=== PATIENT | male | born 1925 | race Caucasian/White ===

== ENCOUNTER 2016-05-29 17:35 | Inpatient (IN) | payer MEDICARE, OTHER ==
[~2016-05-29] VITALS: Ht 180.3 cm; Wt 95.7 kg
[2016-05-29 17:35] VITALS: BP 99/75; PULSE 91; RESP 21; TEMP 96.8; O2SAT 92
--- NOTE | 2016-05-29 17:35 | NUR ---
BROUGHT IN BY [facility]ILL 65 AND MARISEL MCCOY, PLACED IN BED #1 AND TRIAGED. REPORT GIVEN TO LEIGH ANN
--- NOTE | 2016-05-29 17:38 | NUR ---
Patient brought in by ambulance on breathing treatment-02 sat 95%, alert and oriented x4. Per EMT, patient was brought in from [facility] due to complaints of being short of breath. Patient states feels short of breath at this time. Breathing appears labored. RT at bedside-placed on 02 2L by RT and saturating at 98%, MD at bedside and aware. No other complaints/injuries per patient, emt or noted.
--- NOTE | 2016-05-29 17:45 | NUR ---
Rash noted to abdomen and arms with small openings, no drainage. Bilateral lower legs are wrapped with kerlix. Redness, rash with small openings and small amount of yellow/brown thin drainage noted to bilateral lower extremites. Patient states has itching problem and scratches area alot. States gets wound care MWF. Last wound care done this AM
[2016-05-29 18:04] LABS: BASOPHILS # (AUTO) 0.1 K/uL (0.0-0.2); EOSINOPHILS # (AUTO) 0.2 K/uL (0.0-0.4); EOSINOPHILS % (AUTO) 3.1 % (0.0-4.0); HEMOGLOBIN 11.1 g/dL (14.0-18.0); LYMPHOCYTES # (AUTO) 0.8 K/uL (1.0-5.5); LYMPHOCYTES % (AUTO) 14.7 % (20.5-51.5); MEAN CORPUSCULAR HEMOGLOBIN 26 pg (27-31); MEAN CORPUSCULAR HGB CONC 32 % (32-36); MEAN CORPUSCULAR VOLUME 83 fL (79.0-98.0); MONOCYTES # (AUTO) 0.8 K/uL (0.0-1.0); MONOCYTES % (AUTO) 13.7 % (1.7-9.3); NEUTROPHILS # (AUTO) 3.8 K/uL (1.8-7.7); NEUTROPHILS % (AUTO) 67.5 % (40.0-70.0); PLATELET COUNT (AUTO) 196 K/uL (130-430); RED BLOOD CELL COUNT(AUTO) 4.21 MIL/uL (4.2-6.2); RED CELL DISTRIBUTION WIDTH 23.5 % (9.0-15.0); WHITE BLOOD COUNT (AUTO) 5.7 K/uL (4.8-10.8)
--- NOTE | 2016-05-29 18:04 | NUR ---
Dr. Barrios increased 02 to 4L, saturation at 91%
[2016-05-29 18:15] LABS: CALCIUM 9.1 mg/dL (8.4-11.0); CHLORIDE 106 mmol/L (98-107); CREATININE 1.53 mg/dL (0.55-1.30); GLUCOSE 152 mg/dL (70-99); SODIUM SERUM 139 mmol/L (136-145); UREA NITROGEN, BLOOD 24 mg/dL (8-21)
[2016-05-29 18:20] LABS: ALANINE AMINOTRANSFERASE 18 U/L (12-78); ALBUMIN 3.3 g/dL (3.4-4.8); ASPARTATE AMINOTRANSFERASE 21 U/L (10-37); TOTAL BILIRUBIN 0.6 mg/dL (0.0-1.0); TOTAL PROTEIN, SERUM 6.7 g/dL (6.4-8.3)
[2016-05-29 18:26] LABS: ANION GAP < 3 (5-15)
[2016-05-29] MEDS ORDERED: AZITHROMYCIN 500 MG in NS 250 ML IV ONE (18:30)
[2016-05-29] MEDS ORDERED: cefTRIAXone 1 GM IVPB PREMIX 50 ML IV ONE (18:30)
--- NOTE | 2016-05-29 18:30 | NUR ---
Patient in stable condition, no distress noted. Grand-daughter at bedside.
[2016-05-29 18:32] LABS: INR 3.2 (0.80-1.20)
[2016-05-29] MEDS ORDERED: DILT120C89 PO (18:57)
[2016-05-29] MEDS ORDERED: SPIR50TA26 PO (18:57)
[2016-05-29] MEDS ORDERED: ASCO500T20 PO (18:57)
[2016-05-29] MEDS ORDERED: VIS25 PO (18:57)
[2016-05-29] MEDS ORDERED: FURO-149 PO (18:57)
[2016-05-29] MEDS ORDERED: WARF1TAB2 PO (18:57)
[2016-05-29] MEDS ORDERED: ACET-73 PO (18:57)
[2016-05-29] MEDS ORDERED: FERR-57 PO (18:57)
[2016-05-29] MEDS ORDERED: MULT-1117 PO (18:57)
[2016-05-29] MEDS ORDERED: HYDR-1189 PO (18:57)
[2016-05-29] MEDS ORDERED: DOCU-144 PO (18:57)
[2016-05-29] MEDS ORDERED: ATEN-41 PO (18:57)
[2016-05-29] MEDS ORDERED: HYDROcodone/ACETAMIN 5-325 MG TAB (NORCO/ VICODIN) PO PRN (19:45)
--- NOTE | 2016-05-29 19:45 | NUR ---
Patient will be admitted to [facility]. Admitted to tele unit. Will go to room 121-a. Belongings list completed. Summary report printed. Report given to BERHANE GAN.
[2016-05-29 19:54] VITALS: BP 110/68; PULSE 79; RESP 21; TEMP 96.9; O2SAT 92
--- NOTE | 2016-05-29 20:00 | NUR ---
ADMISSION NOTE Received patient from ER via gurney. Patient admitted with diagnosis of PNA. Patient is awake, alert, oriented X 4. Patient oriented to hospital room, call light, toileting, pain management and safety-teach back done. Patient informed that will be nurse and that their room number is 121A . Personal belongings checked and Belongings List documented. Call light within reach.
--- NOTE | 2016-05-29 20:19 | NUR ---
Initial Note Patient in bed at this time resting. Patient has multiple scabs throughout the skin. Bilateral leg redness. Iv site on both AC and both flushing well. Patient is alert and oriented x3. Patient is on oxygen with saturations in the 90s. No acute distress noted at this time. Vital signs stable. Oriented patient to room and call light, patient oriented to TV. Bed alarm on. Fall and safety precautions in place. Will continue to monitor.
[2016-05-29] MEDS: SPIRONOLACTONE 50 MG TABLET (ALDACTONE) PO SCH (20:43)
[2016-05-29 21:31] LABS: BILIRUBIN,URINE NEGATIVE (NEGATIVE); BLOOD, URINE 3+ (NEGATIVE); CLARITY/URINE SL CLOUDY (CLEAR); COLOR,URINE YELLOW (YELLOW); GLUCOSE,URINE NEGATIVE (NEGATIVE); KETONES,URINE TRACE (NEGATIVE); LEUKOCYTE ESTERASE ,URINE 2+ (NEGATIVE); NITRITE, URINE NEGATIVE (NEGATIVE); PROTEIN URINE 2+ (NEGATIVE); UROBILINOGEN,URINE 0.2 (0.2-1.0)
[2016-05-29 21:59] LABS: BACTERIA,URINE MANY /HPF (None Seen); MUCUS,URINE None Seen /LPF (None Seen); RBC,URINE 20-50 /HPF (0-3); WBC,URINE >100 /HPF (0-3)
--- NOTE | 2016-05-29 22:25 | NUR ---
RN ROUNDS Patient in bed at this time resting with eyes closed. respirations even and unlabored. No acute distress noted at this time. Patient in no apparent pain or discomfort at this time. Patient has a dry cough at this time. Call light in hand. Fall and safety precautions in place. Will continue to monitor.
[2016-05-29] MEDS ORDERED: ZOLPIDEM TARTRATE 5 MG TABLET PO PRN (23:15)
[2016-05-29] MEDS ORDERED: IPRATROPIUM/ALBUTEROL SULFATE 3 ML AMPUL.NEB INH PRN (23:15)
[2016-05-29] MEDS ORDERED: IPRATROPIUM/ALBUTEROL SULFATE 3 ML AMPUL.NEB INH ONE (23:45)
[2016-05-30] VITALS (9 sets, daily range): BP systolic 104–120; BP diastolic 52–74; PULSE 77–98; RESP 16–19; TEMP 97.5–98.7; O2SAT 90–94
--- NOTE | 2016-05-30 00:48 | NUR ---
RN ROUNDS Patient in bed at this time resting, respirations even and unlabored. Patient in no apparent pain or discomfort at this time, no facial grimacing noted. Call light in hand. Fall and safety precautions in place. Will continue to monitor.
[2016-05-30] MEDS: IPRATROPIUM/ALBUTEROL SULFATE 3 ML AMPUL.NEB INH SCH ×6 (04:44→23:10)
--- NOTE | 2016-05-30 06:36 | NUR ---
Closing Note Patient in bed at this time resting. Respirations even and unlabored. No acute distress noted at this time. All needs met, all due meds given. Call light in hand. Fall and safety precautions in place. Will endorse to day shift nurse.
[2016-05-30 07:24] LABS: BASOPHILS # (AUTO) 0.1 K/uL (0.0-0.2); BASOPHILS % (AUTO) 1.1 % (0.0-2.0); EOSINOPHILS # (AUTO) 0.1 K/uL (0.0-0.4); EOSINOPHILS % (AUTO) 2.9 % (0.0-4.0); HEMATOCRIT 31.4 % (36-54); HEMOGLOBIN 9.9 g/dL (14.0-18.0); LYMPHOCYTES # (AUTO) 0.8 K/uL (1.0-5.5); LYMPHOCYTES % (AUTO) 17.9 % (20.5-51.5); MEAN CORPUSCULAR HEMOGLOBIN 26 pg (27-31); MEAN CORPUSCULAR HGB CONC 32 % (32-36); MEAN CORPUSCULAR VOLUME 82 fL (79.0-98.0); MONOCYTES # (AUTO) 0.6 K/uL (0.0-1.0); MONOCYTES % (AUTO) 12.9 % (1.7-9.3); NEUTROPHILS % (AUTO) 65.2 % (40.0-70.0); PLATELET COUNT (AUTO) 186 K/uL (130-430); RED BLOOD CELL COUNT(AUTO) 3.82 MIL/uL (4.2-6.2); RED CELL DISTRIBUTION WIDTH 23.3 % (9.0-15.0); WHITE BLOOD COUNT (AUTO) 4.6 K/uL (4.8-10.8)
[2016-05-30 07:30] LABS: INR 2.7 (0.80-1.20)
[2016-05-30 07:40] LABS: ANION GAP 7 (5-15); CALCIUM 9.2 mg/dL (8.4-11.0); CHLORIDE 106 mmol/L (98-107); CREATININE 1.39 mg/dL (0.55-1.30); GLUCOSE 107 mg/dL (70-99); POTASSIUM 4.6 mmol/L (3.5-5.1); SODIUM SERUM 141 mmol/L (136-145); UREA NITROGEN, BLOOD 24 mg/dL (8-21)
--- NOTE | 2016-05-30 08:00 | NUR ---
CRITICAL Late entry due to patient care. Spoke with Dr. Diamond regarding critical lab value. Orders to hold Coumadin were given. MD aware of Hgb/Hct and will see patient.
--- NOTE | 2016-05-30 08:10 | NUR ---
AM ROUNDS Late entry due to patient care. Patient received, alert awake and oriented x4. VSS. Patient denies pain or SOB at this time. Patient receiving oxygen via NC 3L. O2 90% at this time. personnel monitor in place, rhythm noted. IV site patent and intact. Patient tolerated breakfast well. Abdomen soft and non distended. Patient able to use urinal to void. Plan of care discussed, patient verbalized understanding. No further needs at this time. Will continue to monitor. Safety and fall precautions in place, call light within reach, side rails upx3, bed alarm on. Patient encouraged to call for assistance, patient verbalized understanding.
[2016-05-30] MEDS ORDERED: WARFARIN SODIUM 1 MG TABLET PO SCH (09:00)
--- NOTE | 2016-05-30 09:06 | NUR ---
Nutrition Update Tony Scale 17 noted. Pt admitted for pneumonia. Diet: regular BMI: 29.6 kg/m2 RD to follow per nutrition care standards.
[2016-05-30] MEDS: DILTIAZEM HCL 120 MG CAP.SR.24H PO SCH (09:26)
[2016-05-30] MEDS: DOCUSATE SODIUM 100 MG CAPSULE PO SCH (09:26)
[2016-05-30] MEDS: FUROSEMIDE 40 MG TABLET PO SCH (09:26)
[2016-05-30] MEDS: ASCORBIC ACID 500 MG TABLET PO SCH (09:26)
[2016-05-30] MEDS: MULTIVITAMINS TAB 1 TABLET PO SCH (09:27)
--- NOTE | 2016-05-30 10:40 | NUR ---
ROUNDS Patient able to self reposition at this time. Patient resting at this time, easily aroused. VSS. Patient denies pain or SOB. Will continue to monitor. Safety and fall precautions in place, call light within reach.
[2016-05-30] MEDS: SPIRONOLACTONE 50 MG TABLET (ALDACTONE) PO SCH ×2 (10:51→21:00)
[2016-05-30] MEDS: ATENOLOL 25 MG TABLET(TENORMIN) PO SCH (10:52)
[2016-05-30] MEDS ORDERED: methylPREDNISolone SOD SUCC/PF 62.5 MG/ML VIAL IVP ONE (12:45)
[2016-05-30] MEDS: ACETAMINOPHEN 500 MG TABLET PO SCH ×4 (13:44→23:29)
--- NOTE | 2016-05-30 14:58 | NUR ---
ROUNDS Patient sitting up at bedside at this time coffee and pie given, patient tolerated well. Patient denies pain or SOB at this time. No further needs. Encouraged patient to call for assistance, patient verbalized understanding. Bed alarm on, call light within reach, patient closest to nurses station. Will continue to monitor.
--- NOTE | 2016-05-30 16:26 | NUR ---
ROUNDS Patient had small semi formed bowel movement at this time, patient was changed cleaned and repositoned. No acute distress noted. Patient denies pain at this time. Respirations even and unlabored. No further needs. Safety and fall precautions in place, call light within reach, will continue to monitor.
[2016-05-30] MEDS ORDERED: WARFARIN SODIUM 1 MG TABLET PO ONE (18:00)
--- NOTE | 2016-05-30 18:00 | NUR ---
WOUND EVALUATION: Wound Consult received from Dr. Diamond. Thank you, Dr. Diamond, for the consult. Patient received in a Benji Bed with an IsoFlex JALIL mattress, awake, alert, and oriented. Patient needs assist to turn in bed. Tony Score is a 17. Past Medical History: Arteriosclerotic Heart Disease, chronic CHF, Atrial fibrillation (on Coumadin and Cardizem), Hypertension, Anemia of chronic disease, possible Liver Cirrhosis, recurrent chronic skin rash, Varicose Veins, remote COPD, history of recurrent UTI, history of cancer including Basal Cell Carcinoma Rectally, Prostate Cancer, and Dickinson Cancer. Recent Labs: WBC 4.6, RBC 3.82, HGB 9.9, HCT 31.4, BUN 24, Creat 1.39, Gluc 107, PT 30.0, PTT 27.6, INR 2.7. Intrinsic factors that delay wound healing: Arteriosclerotic Heart Disease, chronic CHF, Atrial fibrillation, Anemia of chronic disease, remote COPD. Extrinsic factors that delay wound healing: Decreased mobility. Microbiology: Blood Culture x 2 and Urine Culture results in progress. Wound Assessment: 1) Gluteal Sulcus: Moisture-associated wound, present on admission. Wound bed is 70% pink, 30% yellow. Shahla-wound macerated. No odor, no drainage. Measures 3.5 cm x 0.3 cm. Recommend: Cleanse wound with normal saline. Place moisture barrier cream onto wound and shahla-wound. Cover with Sacral foam dressing. Perform wound care daily, and as needed for dressing soiling or dislodgement. 2) Right Lower Extremity: Multiple dry excoriations, present on admission. Wound beds are red, dry. No odor, scant serous drainage medially aspect. Shahla-wounds intact. Recommend: Cleanse extremity with normal saline. Pat dry. Put Oil Emulsion dressing onto any weeping areas, followed by non-adherent pads. Wrap extremity with melody wrap and secure with tape. Perform wound care daily, and as needed for dressing soiling or dislodgement. 3) Left Lower Extremity: Multiple dry excoriations, present on admission. Wound beds are red, dry. No odor, no drainage. Shahla-wounds intact. Recommend: Cleanse extremity with normal saline. Pat dry. Wrap extremity with melody wrap and secure with tape. Perform wound care daily, and as needed for dressing soiling or dislodgement. Also recommend: Encourage and assist patient as needed with repositioning every 2 hours with pillow support and off-load pressure areas with pillows for pressure re-distribution. Offload, elevate and float bilateral heels with pillows. Perform skin care and monitor skin integrity Q shift. Use moisture barrier cream on buttocks and other moisture susceptible areas QID and as needed for soiling. Attach pump to convert mattress to low air-loss therapy/mattress.
[2016-05-30] MEDS: methylPREDNISolone SOD SUCC/PF 62.5 MG/ML VIAL IVP SCH ×2 (18:33→23:13)
--- NOTE | 2016-05-30 18:43 | NUR ---
CLOSING NOTE Patient tolerating dinner well. No SOB noted. Patient denies pain at this time and refused Tylenol. Family at bedside. IV site patent and intact. No further needs at this time. Wound care completed with RNMiki see wound care notes. Safety and fall precautions in place, call light within reach, will endorse to next shift.
--- NOTE | 2016-05-30 19:40 | NUR ---
notes received the pt from the day nurse ,pt a/a/ox4.no c/o sob or chest pain .watching tv with no complaints.o2 via nc in place at 3l/min.monitor in place and shows a fib.dressings to both legs and sacral area are dry and intact.bed alarm is regional hr manager light within reach.safety measures in progress.continue to monitor.
[2016-05-30] MEDS: cefTRIAXone 1 GM IVPB PREMIX 50 ML IV SCH (20:35)
[2016-05-30] MEDS: FERROUS SULFATE 325 MG TABLET.DR PO SCH (21:01)
[2016-05-30] MEDS: AZITHROMYCIN 500 MG in NS 250 ML IV SCH (21:27)
--- NOTE | 2016-05-30 21:41 | NUR ---
notes pt awaken and given his 2100 medication. pt tolerated well.continue to monitor.
--- NOTE | 2016-05-30 23:48 | NUR ---
notes was awaken for his Tylenol,pt refused and returns to sleep.continue to monitor.
--- NOTE | 2016-05-31 01:18 | NUR ---
notes pt sleeping,no dyspnea noted.call light within reach.continue to monitor.
[2016-05-31 02:02] VITALS: BP 116/62; PULSE 94; RESP 18; TEMP 98; O2SAT 98
--- NOTE | 2016-05-31 03:18 | NUR ---
notes pt sleeping,call light within reach.continue to monitor.
[2016-05-31] MEDS: IPRATROPIUM/ALBUTEROL SULFATE 3 ML AMPUL.NEB INH SCH ×6 (03:36→23:54)
--- NOTE | 2016-05-31 03:45 | NUR ---
notes pt awaken and given a breathing treatment by the respiratory therapist.continue to monitor.
[2016-05-31 04:49] VITALS: BP 113/67; PULSE 89; RESP 20; TEMP 98; O2SAT 92
[2016-05-31] MEDS: methylPREDNISolone SOD SUCC/PF 62.5 MG/ML VIAL IVP SCH ×3 (05:02→21:55)
--- NOTE | 2016-05-31 05:29 | NUR ---
notes pt resting with no dyspnea noted.o2 via mask at 6l/min was placed on the pt by the respiratory therapist.due to a low sat.will continue to monitor.
[2016-05-31] MEDS: ACETAMINOPHEN 500 MG TABLET PO SCH ×4 (05:47→23:53)
--- NOTE | 2016-05-31 06:18 | NUR ---
closing notes pt incontinent of stool and urine.pt cleaned linen changed.call light within reach .no c/o sob when asked .will endorse the care of the pt to the day nurse.
[2016-05-31 06:49] LABS: HEMATOCRIT 31.8 % (36-54); HEMOGLOBIN 9.9 g/dL (14.0-18.0); MEAN CORPUSCULAR HEMOGLOBIN 26 pg (27-31); MEAN CORPUSCULAR HGB CONC 31 % (32-36); MEAN CORPUSCULAR VOLUME 84 fL (79.0-98.0); PLATELET COUNT (AUTO) 165 K/uL (130-430); RED BLOOD CELL COUNT(AUTO) 3.81 MIL/uL (4.2-6.2); RED CELL DISTRIBUTION WIDTH 23.2 % (9.0-15.0)
[2016-05-31 06:50] LABS: INR 2.5 (0.80-1.20)
[2016-05-31 07:02] LABS: ANION GAP 3 (5-15); CALCIUM 8.8 mg/dL (8.4-11.0); CHLORIDE 106 mmol/L (98-107); CREATININE 1.38 mg/dL (0.55-1.30); GLUCOSE 215 mg/dL (70-99); POTASSIUM 4.4 mmol/L (3.5-5.1); SODIUM SERUM 140 mmol/L (136-145); THYROID STIMULATING HORMONE 1.19 uIu/mL (0.34-4.82); UREA NITROGEN, BLOOD 27 mg/dL (8-21)
[2016-05-31 07:25] LABS: WHITE BLOOD COUNT (AUTO) 2.9 K/uL (4.8-10.8)
[2016-05-31 08:00] VITALS: BP 124/70; PULSE 102; RESP 19; TEMP 97.8; O2SAT 93
--- NOTE | 2016-05-31 08:00 | NUR ---
INITIAL NOTE PT LAYING IN BED RESTING, NO S/S OF DISTRESS OR COMPLAINT OF PAIN AT THIS TIME, VSS, NASAL CANULA IN PLACE WITH PATIENT SATURATING AT 93%. TELEMONITOR IN PLACE, IV NOTED TO LAC SALINE LOCKED, SITE PATENT NO S/S OF INFILTRATION NOTED, DRESSING NOTED TO BILATERAL LOWER EXTREMITIES, PER REPORT THE LEGS HAVE SCABS AND ARE WEEPING, DRESSINGS CLEAN DRY AND INTACT AT THIS TIME. SAFETY MEASURES IN PLACE, BED IN LOW POSITION AND LOCKED, PT REORIENTED TO USE OF CALL LIGHT AND IT IS PLACED WITHIN REACH, WILL FOLLOW UP
[2016-05-31] MEDS: MULTIVITAMINS TAB 1 TABLET PO SCH (08:32)
[2016-05-31] MEDS: DOCUSATE SODIUM 100 MG CAPSULE PO SCH (08:32)
[2016-05-31] MEDS: ASCORBIC ACID 500 MG TABLET PO SCH (08:32)
[2016-05-31] MEDS: SPIRONOLACTONE 50 MG TABLET (ALDACTONE) PO SCH ×2 (08:32→21:56)
[2016-05-31] MEDS: DILTIAZEM HCL 120 MG CAP.SR.24H PO SCH (08:32)
[2016-05-31] MEDS: FERROUS SULFATE 325 MG TABLET.DR PO SCH ×2 (08:32→21:56)
[2016-05-31] MEDS: FUROSEMIDE 40 MG TABLET PO SCH (08:32)
[2016-05-31] MEDS: ATENOLOL 25 MG TABLET(TENORMIN) PO SCH (08:33)
--- NOTE | 2016-05-31 10:00 | NUR ---
ROUNDS DAUGHTER AT BEDSIDE, REQUESTED UPDATE OF PATIENTS STATUS AND CURRENT MEDICATIONS, DAUGHTER UPDATED, AWAITING TO SPEAK WITH MD.
[2016-05-31 10:44] LABS: ATYPICAL LYMPHOCYTES % 0 % (0-0); BAND % (MANUAL) 0 % (0-6); BASOPHILS % (MANUAL) 0 % (0-2); EOSINOPHILS % (MANUAL) 0 % (0-7); LYMPHOCYTES % (MANUAL) 7 % (20-46); MONOCYTES % (MANUAL) 1 % (0-11)
--- NOTE | 2016-05-31 12:00 | NUR ---
PT SITTING UP IN BED WITH LEGS HANGING OFF THE SIDE, DAUGHTER AT BEDSIDE, NO S/S OF DISTRESS OF COMPLAINT OF PAIN PT MEAL TRAY SET UP FOR LUNCH, NEEDS ATTENDED TOO, CALL LIGHT WITHIN REACH, WILL FOLLOW UP
[2016-05-31 12:11] VITALS: BP 129/75; PULSE 111; RESP 19; TEMP 97.2; O2SAT 91
--- NOTE | 2016-05-31 13:45 | NUR ---
PT LAYING IN BED RESTING, REPOSITIONED WITH PILLOW SUPPORT, NASAL CANULA IN PLACE, NO S/S OF DISTRESS OR COMPLAINT OF PAIN, WILL FOLLOW UP
[2016-05-31] MEDS ORDERED: FUROSEMIDE 20 MG/2 ML VIAL IVP ONE (14:30)
--- NOTE | 2016-05-31 15:46 | NUR ---
PATIENT RECEIVING BREATHING TREATMENT AT THIS TIME, TOLERATING WELL .
[2016-05-31 16:22] VITALS: BP 112/60; PULSE 114; RESP 18; TEMP 98; O2SAT 91
--- NOTE | 2016-05-31 17:30 | NUR ---
WOUND CARE AND REPOSITIONING PT DRESSING TO LEGS CHANGED AND SACRAL REDNESS NOTED, CLEANSED WITH NS, PAT DRY , AND APPLIED ZGAURD
[2016-05-31 17:51] VITALS: Ht 180.3 cm; Wt 95.7 kg
[2016-05-31] MEDS ORDERED: WARFARIN SODIUM 1 MG TABLET PO SCH (18:00)
--- NOTE | 2016-05-31 18:55 | NUR ---
CLOSING NOTE LAYING IN BED, RESTING, TV ON, NASAL CANULA IN PLACE, NO S/S OF DISTRESS OR COMPLAINT OF PAIN, IV SITE PATENT AND INTACT, NO S/S OF INFILTRATION NOTED, ALL NEEDS ATTENDED TO THROUGH OUT SHIFT, SAFETY MEASURES IN PLACE, BED IN LOW POSITION AND LOCKED, CALL LIGHT WITHIN REACH, WILL GIVE REPORT TO FOLLOWING SHIFT.
--- NOTE | 2016-05-31 20:00 | NUR ---
OPENING ASSESSMENT PT. ALERT/ ORIENTED X3. DENIES PAIN. MOVES ALL EXTREMITIES WITH GENERALIZED WEAKNESS. ON O2 3L N/C. O2 SAT. IS 92% NO SOB NOTED. TREJO SL. RAC 20G. INTACT AND PATENT. SITE IS CLEAR. SKIN WITH BILATERAL SCABS WRAPPED.. HAS DENUDED AREA COCCYX AREA. Z-GUARD APPLIED. TOLERATING REGULAR DIET. INCONTINENT OF URINE. CALL LIGHT WITHIN EASY ACCESS. EDUCATED TO CALL NURSE FOR ALL NEEDS AND NOT TO GET OUT OF BED WITHOUT ASSIST. BED IN LOW POSITION. SIDE RAILS UP X3. BED ALARM IS ON.
[2016-05-31 20:10] VITALS: BP 113/69; PULSE 113; RESP 20; TEMP 97.4; O2SAT 92
[2016-05-31] MEDS: AZITHROMYCIN 500 MG in NS 250 ML IV SCH (21:54)
--- NOTE | 2016-05-31 22:10 | NUR ---
NOTES BATH/LINEN CHANGED. PATIENT INCONTINENT OF URINE
[2016-05-31] MEDS: cefTRIAXone 1 GM IVPB PREMIX 50 ML IV SCH (22:43)
[2016-06-01 00:07] VITALS: BP 124/73; PULSE 113; RESP 19; TEMP 97.8; O2SAT 93
--- NOTE | 2016-06-01 00:09 | NUR ---
ROUNDS PATIENT REFUSED TYLENOL ORDERED.
--- NOTE | 2016-06-01 02:00 | NUR ---
ROUNDS PT. COUGHING. RESPIRATORY THERAPIST GAVE PATIENT A HHN TREATMENT. COUGHING DECREASED.
[2016-06-01 04:00] VITALS: BP 119/70; PULSE 120; RESP 19; TEMP 97.2; O2SAT 89
[2016-06-01] MEDS: IPRATROPIUM/ALBUTEROL SULFATE 3 ML AMPUL.NEB INH SCH ×3 (04:46→17:20)
--- NOTE | 2016-06-01 04:49 | NUR ---
ROUNDS PT. ASKED FOR BREATHING TREATMENT. RESPIRATORY THERAPIST GIVING PATIENT HHN TREATMENT @ THIS TIME.
[2016-06-01] MEDS: ACETAMINOPHEN 500 MG TABLET PO SCH ×2 (05:03→12:00)
--- NOTE | 2016-06-01 06:00 | NUR ---
DR. PECK. CALLED BACK. PATIENT IS VERY CONGESTED. HAS BILATERAL CRACKLES. ORDER HHN TREATMENT Q2 HRS. PRN. ORDERS ALREADY IN. CXR. THIS AM. LASIX 20MG IVP NOW X1
[2016-06-01] MEDS ORDERED: FUROSEMIDE 20 MG/2 ML VIAL IVP ONE (06:15)
[2016-06-01] MEDS ORDERED: FUROSEMIDE 20 MG/2 ML VIAL ONE (06:33)
--- NOTE | 2016-06-01 06:35 | NUR ---
LASIX 20MG IVP LASIX 20 MG IVP GIVEN AND CXR DONE @ BEDSIDE.
--- NOTE | 2016-06-01 06:40 | NUR ---
CLOSING NOTES PT. CONTINUES TO BE CONGESTED WITH BILATERAL CRACKLES. O2 SAT. IS 91% ON 3L N/C. CALL LIGHT WITH EASY ACCESS. INFORMED PATIENT TO CALL NURSE FOR ALL NEEDS. NOT TO GET OUT OF BED.
--- NOTE | 2016-06-01 08:00 | NUR ---
initial notes rec patient awake lert with hob elevated. ivl on the l ac intact. no infiltration noted. with o2 at 3 liters via nasal cannula. resp noted to be labored with activities. voiding freely using the urinal. bed in low position and siderails up and locked. call light within reach and knows when to call for assistance. will continue to monitor patient.
[2016-06-01 08:35] VITALS: BP 108/73; PULSE 135; RESP 18; TEMP 97.3; O2SAT 93
[2016-06-01] MEDS: ASCORBIC ACID 500 MG TABLET PO SCH (08:47)
[2016-06-01] MEDS: ATENOLOL 25 MG TABLET(TENORMIN) PO SCH (08:47)
[2016-06-01] MEDS: FERROUS SULFATE 325 MG TABLET.DR PO SCH (08:48)
[2016-06-01] MEDS: FUROSEMIDE 40 MG TABLET PO SCH (08:48)
[2016-06-01] MEDS: SPIRONOLACTONE 50 MG TABLET (ALDACTONE) PO SCH (08:48)
[2016-06-01] MEDS: DOCUSATE SODIUM 100 MG CAPSULE PO SCH (08:49)
[2016-06-01] MEDS: DILTIAZEM HCL 120 MG CAP.SR.24H PO SCH (08:49)
[2016-06-01] MEDS: MULTIVITAMINS TAB 1 TABLET PO SCH (08:49)
[2016-06-01] MEDS: methylPREDNISolone SOD SUCC/PF 62.5 MG/ML VIAL IVP SCH (08:50)
[2016-06-01 09:01] LABS: PROTHROMBIN TIME 35.4 SECS (9.5-12.5)
[2016-06-01 09:02] LABS: INR 3.1 (0.80-1.20)
--- NOTE | 2016-06-01 09:23 | NUR ---
DISCHARGE PLANNING Patient currently on service with [facility] [phone].
--- NOTE | 2016-06-01 10:00 | NUR ---
rounds daughter came and was updated with patient's condition. no sob noted. waiting for dr michaela barber d/lissette.
--- NOTE | 2016-06-01 10:30 | NUR ---
rounds dr jennings was called re pt's d/c to assisted living and notified him too re pt and inr. stated will come to see patient.
[2016-06-01 11:57] VITALS: BP 133/84; PULSE 133; RESP 18; TEMP 99; O2SAT 90
--- NOTE | 2016-06-01 12:30 | NUR ---
rounds dr jennings came and talk to the daughter. pt will be going back to assisted living and daughter will be meeting with a hospice nurse once he gets [place]. no acute distress noted.
--- NOTE | 2016-06-01 13:13 | NUR ---
DC PLANNING: Per Lobo, the pt. is being dc back to [facility] living today. The pt. requires to have o2 at 3l nc , portable tank during the transfer. the pt. is able to sit in w/c or private care upon d/c. >> Called [facility] at [phone] , s/w Crys and requesting transportation for the pt. Per Crys, there is no sales driver for the pt. dt the sales driver quiting recently. Addendum: 06/01/16 at 1351 by Peter Che RN >> s/w Flori, the pt.'s dtr at bed side that [place] has no sales driver to transport the pt. back. Informed Flori about non medical transportation for a out of pocket fee. Flori preferred to take the pt. back to [place] herself. She will get the portable oxygen take from [place] and bring back to for the pt. to use during transport back to [place]. >> Assisting Flori per her request to fax Zithromax prescription to [facility], attn : Stef fax# [phone]. Flori already called and spoke with Stef to fill the prescription today.
[2016-06-01 14:00] VITALS: BP 133/84; PULSE 90; RESP 19; TEMP 99
--- NOTE | 2016-06-01 14:30 | NUR ---
rounds wound nurse gordon at bedside . call light within reached and no sob noted.
--- NOTE | 2016-06-01 15:00 | NUR ---
WOUND RE-EVALUATION: Patient received in a [place] Bed with an IsoFlex JALIL mattress, awake, alert, and oriented. Patient needs assist to turn in bed. Tony Score is a 14. Intrinsic factors that delay wound healing: Arteriosclerotic Heart Disease, chronic CHF, Atrial fibrillation, Anemia of chronic disease, remote COPD. Extrinsic factors that delay wound healing: Decreased mobility. Microbiology: Blood Culture x 2 and Urine Culture results in progress. Wound Assessment: 1) Gluteal Sulcus: Moisture-associated wound, present on admission. Wound bed is 100% pink tissue. Shahla-wound intact. No odor, no drainage. Measures 3.0 cm x 0.2 cm. Recommend: Cleanse wound with normal saline. Place moisture barrier cream onto wound and shahla-wound. Cover with Sacral foam dressing. Perform wound care daily, and as needed for dressing soiling or dislodgement. 2) Right Lower Extremity: Multiple dry excoriations, present on admission. Wound beds are red, dry. No odor, no drainage. Shahla-wounds intact. Recommend continue: Cleanse extremity with normal saline. Pat dry. Wrap extremity with melody wrap and secure with tape (to protect from patient scratching leg). Perform wound care daily, and as needed for dressing soiling or dislodgement. 3) Left Lower Extremity: Multiple dry excoriations, present on admission. Wound beds are red, dry. No odor, no drainage. Shahla-wounds intact. Recommend: Cleanse extremity with normal saline. Pat dry. Wrap extremity with melody wrap and secure with tape (to protect from patient scratching leg). Perform wound care daily, and as needed for dressing soiling or dislodgement. Also recommend continue: Encourage and assist patient as needed with repositioning every 2 hours with pillow support and off-load pressure areas with pillows for pressure re-distribution. Offload, elevate and float bilateral heels with pillows. Perform skin care and monitor skin integrity Q shift. Use moisture barrier cream on buttocks and other moisture susceptible areas QID and as needed for soiling. Maintain patient on low air-loss therapy/mattress.
--- NOTE | 2016-06-01 15:28 | NUR ---
closing notes pt was discharged with pt's daughter. will be going back to [facility] living. was wheeled with his own portable o2 at 3 liters via nasal cannula. bilateral legs was applied with lotion and wrapped with melody to prevent form scatching. noted wi th multiple sratches and laiw wound nurse took pic prior to d/c
--- NOTE | 2016-06-01 15:39 | NUR ---
PHYSICAL THERAPY CO-SIGN The Physical Therapy Progress Notes documented by Railroad Firer/Fireman have been reviewed. I CONCUR W/EXPERIMENTAL MECHANIC NOTE; CONT PER TX PLAN Reviewed/Co-Signed by: Jessy Prince PT Documentation Done by: AUSTYN WILDE EXPERIMENTAL MECHANIC Addendum: 06/01/16 at 1539 by Jessy Prince PT Amended: Links added.
[2016-06-01] MEDS ORDERED: WARFARIN SODIUM 1 MG TABLET PO SCH (18:00)
== END 2016-06-01 15:28 | disposition home or self-care (01) | DRG 871 ==
LOC: SED 17:35 → STU 19:24
PROVIDERS: ADMIT Family Medicine; ATTEND Family Medicine
DX: A41.9 Sepsis, unspecified organism (principal); J69.0 Pneumonitis due to inhalation of food and vomit; I50.33 Acute on chronic diastolic (congestive) heart failure; J44.0 Chronic obstructive pulmonary disease with (acute) lower respiratory infection; D68.59 Other primary thrombophilia; Z99.81 Dependence on supplemental oxygen; Z87.440 Personal history of urinary (tract) infections; Z87.891 Personal history of nicotine dependence; Z85.828 Personal history of other malignant neoplasm of skin; D63.8 Anemia in other chronic diseases classified elsewhere; Z79.01 Long term (current) use of anticoagulants; I48.91 Unspecified atrial fibrillation; Z85.46 Personal history of malignant neoplasm of prostate; I25.10 Atherosclerotic heart disease of native coronary artery without angina pectoris; I11.0 Hypertensive heart disease with heart failure; I83.90 Asymptomatic varicose veins of unspecified lower extremity; Z79.899 Other long term (current) drug therapy; Z88.8 Allergy status to other drugs, medicaments and biological substances; K74.60 Unspecified cirrhosis of liver
CPT/HCPCS: 36415; 71010; 80048; 80053; 81000-TC; 83605; 83874; 83880; 84443-TC; 84484; 85007; 85025; 85027; 85610-TC; 85730-TC; 87040-TC; 87086; 87186-TC; 93005; 93306; 94640; 94760; 97110-GP; 97116-GP; 97530-GP; 99285; J0456; J0696; J1940; J2930; J7050